=== PATIENT | male | born 1965 | race Caucasian/White ===

== ENCOUNTER 2016-10-07 13:00 | Emergency (ER) | payer OTHER ==
[~2016-10-07] VITALS: Ht 185.4 cm; Wt 99.0 kg
[2016-10-07 13:01] VITALS: Ht 185.4 cm; Wt 99.0 kg
[2016-10-07] MEDS ORDERED: KETOROLAC TROMETHAMINE 60 MG/2 ML VIAL IM STA (13:15)
[2016-10-07] MEDS ORDERED: LIDODERM (LIDOCAINE) PATCH 5% TD STA (13:15)
[2016-10-07] MEDS ORDERED: DIAZEPAM 5MG TAB PO ONE (13:15)
[2016-10-07] MEDS ORDERED: MoRPHine SULFATE 10 MG/ML CARP/VIAL IM STA (13:15)
--- NOTE | 2016-10-07 13:34 | EMERGENCY ROOM VISIT NOTE ---
History Report prepared by Madalyn: Willow Denton Under the Supervision of: Dr. Briseida Flores D.O. First contact with patient: 13:06 Chief Complaint: BACK PAIN Stated Complaint: LOW BACK PAIN WITH RT SIDE BURNING History of Present Illness The patient is a 51 year old male who presents to the Emergency Room with complaints of persistent back pain that started two days ago. The patient describes his pain as burning the in his middle and lower back and states like it feel like his back "has a blow torch on it". He also notes that his pain worsens when he works. He has been working the last 2 days. The patient states that he has shock like pain in legs and feet. He states he has two bulging disks in his spine. He has had similar episodes previously and exacerbation of his pain due to increased lifting or moving. Patient states he was recently unloading pallets from a truck. He also notes that the pain makes him nauseous. The patient states that he takes takes 500 mg Tylenol for his symptoms and has had little relief. He denies incontinence and numbness in his genitalia. He also takes Tramadol for arthritis in his shoulder. Patient states movement makes the pain worse. Source of History: patient Onset: two days ago Position: back (lower) Quality: burning Timing: other (persistent) Associated Symptoms: No numbness (in genitalia) Note: Pt has shock like pain in legs and feet. Pt denies incontinence. Review of Systems See HPI for pertinent positives & negatives. A total of 10 systems reviewed and were otherwise negative. Past Medical & Surgical Medical Problems: (1) Arthritis (2) Bulging discs Family History No pertinent family history stated. Social History Smoking Status: Never Smoker Marital Status: single Occupation Status: employed Current/Historical Medications Scheduled Lidocaine (Lidoderm Patch 5%), 1 PATCH TD DAILY Scheduled PRN Diazepam (Valium), 5 MG PO Q6H PRN for Pain Ibuprofen (Advil), 200-800 MG PO Q8 PRN for Pain Oxycodone/Acetaminophen 5MG/325MG (Percocet 5MG/325MG), 1-2 TABS PO Q6H PRN for Pain Tramadol (Ultram), 50 MG PO Q8H PRN for Pain Allergies Coded Allergies: No Known Allergies (Unverified , 10/07/16) Physical Exam Vital Signs Date Time Temp Pulse Resp B/P (MAP) Pulse Ox O2 Delivery O2 Flow Rate FiO2 10/07/16 15:55 36.5 54 18 137/91 96 10/07/16 13:01 36.5 75 18 155/104 96 Physical Exam GENERAL: alert, well appearing, well nourished, no distress, non-toxic. Patient is in mild distress. EYE EXAM: normal conjunctiva, PERRL and EOM's grossly intact OROPHARYNX: no exudate, no erythema, lips, buccal mucosa, and tongue normal and mucous membranes are moist. Poor dentition. NECK: supple, no nuchal rigidity, no adenopathy, non-tender LUNGS: Clear to auscultation. Normal chest wall mechanics HEART: no murmurs, S1 normal and S2 normal ABDOMEN: abdomen soft, non-tender, normo-active bowel sounds, no masses, no rebound or guarding. BACK: Back is symmetrical on inspection and there is no deformity, Mild tenderness across lower back SKIN: no rashes and no bruising UPPER EXTREMITIES: upper extremities are grossly normal. LOWER EXTREMITIES: No pitting edema. Mild hyperesthesia down right lateral extremity.+2/4 patellar reflexes b/l NEURO EXAM: Normal sensorium, cranial nerves II-XII grossly intact, normal speech, no gross weakness of arms, no gross weakness of legs. Gross sensation intact. Medical Decision & Procedures Medications Administered Medications (Trade) Dose Ordered Sig/Nusrat Route Start Time Stop Time Status Last Admin Dose Admin Lidocaine (Lidoderm Patch 5%) 1 patch NOW STAT TD 10/07/16 13:15 10/07/16 13:17 DC 10/07/16 13:29 1 PATCH Morphine Sulfate (MoRPHine SULFATE INJ) 8 mg NOW STAT IM 10/07/16 13:15 10/07/16 13:17 DC 10/07/16 13:30 8 MG Diazepam (Valium Tab) 5 mg NOW ONCE PO 10/07/16 13:15 10/07/16 13:17 DC 10/07/16 13:30 5 MG Ketorolac Tromethamine (Toradol Inj) 60 mg NOW STAT IM 10/07/16 13:15 10/07/16 13:17 DC 10/07/16 13:29 60 MG Oxycodone/ Acetaminophen (Percocet 5-325mg Tab) 2 tab NOW ONCE PO 8/12/17 14:30 10/07/16 14:31 DC 10/07/16 15:09 2 TAB ED Course 1310: The patient was evaluated in room B4B. A complete history and physical exam was performed. 1315: Toradol Inj 60 mg IM, Valium tab 5 mg PO, Morphine Sulfate 8 mg IM, Lidocaine 1 patch TD. 1415: I reevaluated the patient he says he is feeling moderately better. 1430: Oxycodone/Acetaminophen 2 tab PO. 1522: I rechecked on the patient, he states he is feeling better and resting more comfortably. 1532: Upon reevaluation, the patient is feeling better. I discussed the findings and the treatment plan with the patient. He verbalizes agreement and understanding. The patient was discharged home. Medical Decision Differential diagnosis: Etiologies such as musculoskeletal, disc herniation, fracture, aortic disease, metastatic disease, cord compression, discitis, infection, renal colic, gastrointestinal, acute exacerbation of chronic back pain, sciatica, cauda equina, as well as others were entertained. Patient with history of chronic low back pain and known herniated disc with an acute exacerbation and likely lumbar radiculopathy. The symptoms to suggest acute cauda equina, no risk factors for epidural abscess/hematoma. She and able to ambulate, had normal patellar reflexes, was not incontinent. Doubt acute infectious etiology including osteomyelitis or discitis. Patient with likely worsening disc herniation contributing to radicular pain. Patient states he has previously seen a specialist and surgery was recommended however he has declined this. Patient takes tramadol daily for his chronic pain, but in the last 2-3 days the tramadol was not helping. Patient improved here following additional medications, urine negative and doubt additional pathology contributing to pain. Doubt vascular etiology. Vital signs otherwise stable. Discussed with patient close follow-up with his family doctor , symptoms to watch and return for, he verbalized understanding was agreeable with plan. Medication Reconcilliation Current Medication List: was personally reviewed by me Blood Pressure Screening Patient's blood pressure: Elevated blood pressure Blood pressure disposition: Elevated BP felt to be situational Impression Primary Impression: Low back pain Additional Impression: Lumbar radiculopathy Scribe Attestation The scribe's documentation has been prepared under my direction and personally reviewed by me in its entirety. I confirm that the note above accurately reflects all work, treatment, procedures, and medical decision making performed by me. Departure Information Dispostion Home / Self-Care Prescriptions Lidocaine (Lidoderm Patch 5%) 1 Ea Tdsy 1 PATCH TD DAILY for Pain, #1 BOX Prov: Briseida Flores, DO 10/07/16 Diazepam (Valium) 5 Mg Tab 5 MG PO Q6H Y for Pain, #15 TAB Prov: Briseida Flores, DO 10/07/16 Oxycodone/Acetaminophen 5MG/325MG (PERCOCET 5MG/325MG) Tab 1-2 TABS PO Q6H Y for Pain, #20 TAB Prov: Briseida Flores, DO 10/07/16 Referrals No Doctor, Assigned (PCP) Forms HOME CARE DOCUMENTATION FORM, IMPORTANT VISIT INFORMATION Patient Instructions My [facility] Additional Instructions Please avoid any heavy lifting or strenuous activity until you're feeling better. Please take the medications as prescribed. You cannot take the muscle relaxer or stronger pain medication and drive his you may become drowsy or dizzy. You may use an additional [id number] anti-inflammatories such as Motrin/Advil/Aleve. While you're taking these please drink plenty of water and do not take them on an empty stomach. If you have any worsening pain, increasing numbness or tingling in the leg, develop weakness of the leg, numbness or tingling around your genitals or groin, become incontinent of urine or stool, develop fevers, or you have any other new concerns, please return the emergency room immediately. Problem Qualifiers Primary Impression: Low back pain Chronicity: acute Back pain laterality: bilateral Sciatica presence: with sciatica Sciatica laterality: sciatica of right side Qualified Codes: M54.41 - Lumbago with sciatica, right side
[2016-10-07] MEDS ORDERED: IBUP-1050 PO (14:18)
[2016-10-07] MEDS ORDERED: TRAM-10 PO (14:18)
[2016-10-07] MEDS ORDERED: OXYCODONE/ACETAMINOPHEN 5-325 TAB PO ONE (14:30)
[2016-10-07] MEDS ORDERED: DIAZ-165 PO (15:16)
[2016-10-07] MEDS ORDERED: NF656 TD (15:16)
[2016-10-07] MEDS ORDERED: OXYC-57 PO (15:16)
[2016-10-07 15:55] VITALS: BP 137/91; PULSE 54; TEMP 36.5; O2SAT 96
== END 2016-10-07 15:40 | disposition home or self-care (01) ==
LOC: C.EDB 13:02
DX: M54.41 Lumbago with sciatica, right side (principal); M54.16 Radiculopathy, lumbar region; M19.90 Unspecified osteoarthritis, unspecified site

== ENCOUNTER 2017-04-30 12:30 | Emergency (ER) | payer OTHER ==
[~2017-04-30] VITALS: Ht 188 cm; Wt 88.0 kg
[~2017-04-30 12:30] MED LIST: DIAZ-165 PO; IBUP-1050 PO; NF656 TD; OXYC-57 PO; TRAM-10 PO
[2017-04-30 12:34] VITALS: TEMP 36.7; Ht 188 cm; Wt 88.0 kg
--- NOTE | 2017-04-30 13:42 | EMERGENCY ROOM VISIT NOTE ---
History First contact with patient: 13:05 Chief Complaint: ARM PAIN Stated Complaint: STOMACH BURNING, R ARM NUMB( NO STRENGTH History of Present Illness The patient is a 52 year old male who presents to the Emergency Room with complaints of right arm paresthesias which began approximately 3 hours ago. The patient states he was pushing a car into the garage at work, when he began experiencing a sharp pain in his right arm radiating from the shoulder to the fingers. The patient states this sharp pain quickly left and was replaced by a burning sensation. He states following the burning sensation, he has a sensation "like my arm is asleep". He states this has remained and does not seem to be changing for the past few hours. He states he feels very weak in that arm, but denies any actual numbness as far as decreased sensation. The patient states a few days ago, a similar episode occurred, but only lasted for 2 -3 minutes, then the patient was fine. He states he took 1 dose of 600 mg ibuprofen when the incident began today, and did not notice any improvement in his symptoms. 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 He states he feels that his nails may be more red than normal, but is uncertain. He rates the discomfort 10/10. The patient also complains of epigastric abdominal pain which is not improving with Tums. The patient does have a history of peptic ulcer disease, and states he does get similar pain in the epigastric region with his diet and the use of NSAIDs. He states he has been taking more NSAIDs than normal due to the weather and his arthritis flaring up. He states today, while pushing the car, he noticed the epigastric pain worsening. He took 4-5 times, and did not feel improvement in his symptoms. He describes the pain as a burning sensation and states he felt that he needed to double over to relieve the pain. He states it does feel consistent with his gastritis. He had only Mountain Dew today, and has not eaten or drank anything different. He describes the pain as a burning sensation and rates it 7/10. The patient reports associated lightheadedness with the other symptoms. He denies any chest pain, dizziness, shortness of breath, cough, hemoptysis, coffee -ground emesis, visual disturbances, nausea, vomiting, diarrhea, constipation, recent illness or fever, recent vaccinations, headache, new or different back pain, or any leg or lower extremity symptoms. He denies any urinary symptoms. He denies any history of hyperlipidemia. He did recently have a carotid duplex scan which did not show any stenosis or blockages. Review of Systems A complete 10 point review of systems was reviewed with the patient with pertinent positives and negatives as per history of present illness. All else were negative. Past Medical/Surgical History Medical Problems: (1) Arthritis (2) Bulging discs Social History Smoking Status: Never Smoker Marital Status: single Occupation Status: employed Current/Historical Medications Scheduled Ibuprofen (Motrin), 600 MG PO TID Scheduled PRN Orphenadrine Citrate (Norflex), 100 MG PO TID PRN for MUSCLE SPASMS & BACK PAIN Sildenafil Citrate (Pulmonary (Sildenafil), 20-60 MG PO UD PRN for PRN Tramadol (Ultram), 50 MG PO Q8H PRN for Pain Allergies None Physical Exam Vital Signs Date Time Temp Pulse Resp B/P (MAP) Pulse Ox O2 Delivery O2 Flow Rate FiO2 04/30/17 16:29 80 20 156/100 99 04/30/17 15:50 76 18 165/95 93 Room Air 04/30/17 14:45 78 04/30/17 13:45 98 Room Air 04/30/17 12:34 36.7 98 18 137/90 96 Physical Exam VITALS: Vitals are noted on the nurse's note and reviewed by myself. Vital signs stable. GENERAL: This is a 52-year-old white male, in no acute distress, nondiaphoretic , well-developed well-nourished. SKIN: The skin was without rashes, erythema, edema, or bruising. There is no tenting of the skin. Capillary reflex less than 2 seconds. HEAD: Normocephalic atraumatic. EARS: External auditory canals clear, tympanic membranes pearly dyson without erythema or effusion bilaterally. EYES: Pupils equal round and reactive to light and accommodation. Conjunctivae without injection, sclerae without icterus. Extraocular movements intact. NOSE: Patent, turbinates without inflammation or discharge. No sinus tenderness. MOUTH: Mucous membranes moist. Tonsils are not enlarged. Pharynx without erythema or exudate. Uvula midline. Airway patent. Tongue does not deviate. NECK: Supple without nuchal rigidity. No lymphadenopathy. No thyromegaly. Cervical spine is nontender. No JVD. HEART: Regular rate and rhythm without murmurs gallops or rubs. LUNGS: Clear to auscultation bilaterally without wheezes, rales or rhonchi. No dullness to percussion. No retractions or accessory muscle use. ABDOMEN: Positive bowel sounds x 4. Normal tympanic percussion. Epigastric tenderness noted on palpation. The abdomen was otherwise soft, nontender, without masses or organomegaly. Wilson sign negative. No guarding or rebound tenderness. No CVA tenderness. MUSCULOSKELETAL: Tenderness in the right shoulder located just posterior to the clavicle, in what is consistent with the thoracic outlet. Adson's maneuver negative. No muscle atrophy, erythema, or edema noted. Full range of motion without joint tenderness in all extremities. No tenderness to palpation. Normal gait. Strength 3/5 throughout in the right upper extremity compared with 5/5 strength in the left upper extremity. NEURO: Patient was alert and oriented to person place and time. Normal sensation to light and sharp touch. Deep tendon reflexes 2+ throughout. No focal neurological deficits. Medical Decision & Procedures ER Provider Diagnostic Interpretation: CERVICAL SPINE 2 OR 3 VIEWS CLINICAL HISTORY: 52 years-old Male presenting with neck pain with radiculopathy. TECHNIQUE: Lateral, frontal, open-mouth odontoid, and submental views of the cervical spine were obtained. COMPARISON: None. FINDINGS: Straightening of normal cervical lordosis likely positional. Vertebral bodies maintain normal height and alignment. Mild intervertebral disc height loss evident at C5-6 and C6-7, where there are disc osteophyte complexes. No significant posterior bony spurring. No radiographic evidence of fracture or subluxation. Normal atlantodental interval. No prevertebral soft tissue swelling. Lateral masses of C1 articulate normally with C2. Anterior arch of C1 intact. Partially visualized cortical compression plate and screw fixation of a clavicle. IMPRESSION: Degenerative changes of the cervical spine at C5-6 and C6-7. No radiographic evidence of acute osseous injury. Electronically signed by: Brian Ley M.D. 04/30/2017 2:57 PM Dictated Date/Time: 04/30/2017 2:56 PM TWO VIEW CHEST CLINICAL HISTORY: Epigastric abdominal pain. FINDINGS: PA and lateral chest radiographs are obtained. No prior studies are available for comparison at the time of dictation. The cardiomediastinal silhouette is unremarkable. Emphysematous change is suspected. Nonspecific interstitial thickening is noted. No airspace consolidation or pleural effusion is identified. There is no pneumothorax. Postoperative change is identified in the left clavicle. IMPRESSION: No acute cardiopulmonary abnormality. Electronically signed by: Davis Downing M.D. 04/30/2017 2:53 PM Dictated Date/Time: 04/30/2017 2:52 PM RIGHT SHOULDER 3 VIEWS CLINICAL HISTORY: Right shoulder pain. Paresthesias. FINDINGS: 3 views of the right shoulder are obtained. No prior studies are available for comparison at the time of dictation. The skeletal structures are well mineralized. No fracture or dislocation is seen. Minimal productive degenerative change is identified at the acromioclavicular joint. The glenohumeral articulation is preserved. The overlying soft tissues are within normal limits. The visualized right upper lobe lung parenchyma appears clear. IMPRESSION: No acute bony abnormality is seen in the right shoulder. Electronically signed by: Davis Downing M.D. 04/30/2017 2:55 PM Dictated Date/Time: 04/30/2017 2:54 PM Laboratory Results 04/30/17 13:45 Red Blood Count 4.62, Mean Corpuscular Volume 91.3, Mean Corpuscular Hemoglobin 32.7, Mean Corpuscular Hemoglobin Concent 35.8, Mean Platelet Volume 9.2, Neutrophils (%) (Auto) 41.7, Lymphocytes (%) (Auto) 41.6, Monocytes (%) (Auto) 12.7, Eosinophils (%) (Auto) 3.4, Basophils (%) (Auto) 0.6, Neutrophils # (Auto ) 1.47, Lymphocytes # (Auto) 1.47, Monocytes # (Auto) 0.45, Eosinophils # (Auto ) 0.12, Basophils # (Auto) 0.02 04/30/17 13:45 Test 04/30/17 13:45 White Blood Count 3.53 K/uL (4.8-10.8) Red Blood Count 4.62 M/uL (4.7-6.1) Hemoglobin 15.1 g/dL (14.0-18.0) Hematocrit 42.2 % (42-52) Mean Corpuscular Volume 91.3 fL (80-100) Mean Corpuscular Hemoglobin 32.7 pg (25-34) Mean Corpuscular Hemoglobin Concent 35.8 g/dl (32-36) Platelet Count 226 K/uL (130-400) Mean Platelet Volume 9.2 fL (7.4-10.4) Neutrophils (%) (Auto) 41.7 % Lymphocytes (%) (Auto) 41.6 % Monocytes (%) (Auto) 12.7 % Eosinophils (%) (Auto) 3.4 % Basophils (%) (Auto) 0.6 % Neutrophils # (Auto) 1.47 K/uL (1.4-6.5) Lymphocytes # (Auto) 1.47 K/uL (1.2-3.4) Monocytes # (Auto) 0.45 K/uL (0.11-0.59) Eosinophils # (Auto) 0.12 K/uL (0-0.5) Basophils # (Auto) 0.02 K/uL (0-0.2) RDW Standard Deviation 40.6 fL (36.4-46.3) RDW Coefficient of Variation 12.2 % (11.5-14.5) Immature Granulocyte % (Auto) 0.0 % Immature Granulocyte # (Auto) 0.00 K/uL (0.00-0.02) Erythrocyte Sedimentation Rate 23 mm/hr (0-14) Prothrombin Time 9.9 SECONDS (9.0-12.0) Prothromb Time International Ratio 0.9 (0.9-1.1) Activated Partial Thromboplast Time 23.9 SECONDS (21.0-31.0) Partial Thromboplastin Ratio 0.9 Anion Gap 9.0 mmol/L (3-11) Est Creatinine Clear Calc Drug Dose 93.9 ml/min Estimated GFR () 92.0 Estimated GFR (Non- 79.4 BUN/Creatinine Ratio 7.4 (10-20) Calcium Level 8.7 mg/dl (8.5-10.1) Magnesium Level 2.5 mg/dl (1.8-2.4) Total Bilirubin 0.3 mg/dl (0.2-1) Aspartate Amino Transf (AST/SGOT) 26 U/L (15-37) Alanine Aminotransferase (ALT/SGPT) 29 U/L (12-78) Alkaline Phosphatase 83 U/L (45-117) Troponin I < 0.015 ng/ml (0-0.045) Total Protein 7.8 gm/dl (6.4-8.2) Albumin 3.8 gm/dl (3.4-5.0) Globulin 4.0 gm/dl (2.5-4.0) Albumin/Globulin Ratio 1.0 (0.9-2) Thyroid Stimulating Hormone (TSH) 2.970 uIu/ml (0.300-4.500) Lyme Disease IgG Antibody NEG (NEG) Lyme Disease IgM Antibody NEG (NEG) Medications Administered Medications (Trade) Dose Ordered Sig/Nusrat Route Start Time Stop Time Status Last Admin Dose Admin Dexamethasone Sodium Phosphate (Dexamethasone Inj Pf) 10 mg NOW STAT IV 04/30/17 15:38 04/30/17 15:40 DC 04/30/17 15:56 10 MG Al Hydroxide/Mg Hydroxide (Maalox Susp) 30 ml STK-MED ONCE .ROUTE 04/30/17 15:49 04/30/17 15:50 DC 04/30/17 15:57 30 ML Lidocaine HCl (Viscous Lidocaine 2% Soln) 20 ml STK-MED ONCE .ROUTE 04/30/17 15:49 04/30/17 15:50 DC 04/30/17 15:57 20 ML ECG Per My Interpretation Indication: abdominal pain Rate (beats per minute): 73 Rhythm: sinus with SA Findings: no acute ischemic change Comparison ECG Date: no prior available ED Course The patient was seen and evaluated as above. IV access obtained, labs drawn. EKG performed and reviewed by myself as above. Imaging performed and reviewed by myself and radiologist as above. I discussed the findings of labs and imaging with the patient and his at bedside. I discussed the case with my attending. The patient was given Decadron and a GI cocktail for his symptoms and did note mild improvement. Discharge instructions reviewed, and the patient was discharged home in good condition. Medical Decision This is this is a 52-year-old male patient who presents to the emergency department today complaining of left arm weakness and paresthesias as well as epigastric discomfort. The patient does have a history of gastritis, and states his discomfort is consistent with flareups of the gastritis he has had in the past. He has been taking more ibuprofen than normal due to arthritis pain, and associates the epigastric pain with the medications. He did try taking Tums without improvement. The patient's symptoms did improve with a GI cocktail. He was encouraged to always make sure he is taking ibuprofen or other NSAIDs on a full stomach, as he normally takes the medication on an empty stomach. He was encouraged to follow-up outpatient with his primary care provider and may be consider a short course of proton pump inhibitors to help with acid production. His shoulder and arm symptoms are consistent with a cervical radiculopathy versus thoracic outlet syndrome. His x-ray did show some degenerative changes at C5-6 and C6-7. He was given Decadron here in the emergency department with some mild improvement in his symptoms. The patient's lab work was overall unrevealing, and did not show any obvious signs of infection. There is no significant anemia or leukocytosis. His electrolytes, liver function, and kidney function were overall normal. His troponin test was negative. Lyme disease testing was negative, but sed rate was slightly elevated. The patient was encouraged to follow-up outpatient with orthopedics for ongoing management of his symptoms. I discussed with him proper management including anti-inflammatory medications, but I am hesitant to provide him with more steroids or NSAIDs with the gastritis. He was encouraged to take ibuprofen if his abdominal symptoms improved. The patient was agreeable to the assessment and plan. All questions were answered to the patient and his 's satisfaction. Etiologies such as gastritis, appendicitis, diverticulitis, obstruction, inflammatory bowel disease, renal colic, PUD, biliary pathology, pancreatitis, mesenteric ischemia, aortic pathology, cardiac etiology, infections, genitourinary, UTI, perforated viscus, sprain or strain, rotator cuff tear, thoracic outlet syndrome, cervical radiculopathy,fracture, malignancy, as well as others were entertained Medication Reconcilliation Current Medication List: was personally reviewed by me Blood Pressure Screening Patient's blood pressure: Elevated blood pressure Blood pressure disposition: Elevated BP felt to be situational Impression Primary Impression: Right cervical radiculopathy Additional Impression: Gastritis Departure Information Dispostion Home / Self-Care Condition GOOD Referrals No Doctor, Assigned (PCP) Tay Rincon, DO Patient Instructions ED Cervical Radiculopathy, ED PUD Vs Gastritis, My [facility] Additional Instructions You were seen in the emergency department today for left arm weakness and paresthesias, and epigastric pain/gastritis. As discussed, labs and imaging have ruled out any acute, emergent causes for your symptoms. You were given Decadron IV here in the emergency department for the inflammation in the shoulder which I suspect is causing impingement of the nerve, causing the weakness and paresthesias of the right upper extremity. For the gastritis/epigastric pain, I do recommend a two-week trial of OTC Prilosec 20 mg. Ibuprofen(Motrin, Advil) may be used for fever or pain. Use 600mg every six hours as needed. Take with food. Avoid using more than 2400mg in a 24 hour period. Do not use 2400mg per day for more than three consecutive days without physician direction. Prolonged inappropriate use can lead to stomach upset or ulcers. Please always take this medication with food to help decrease the risk of gastritis and epigastric irritation. (AND/OR) Acetaminophen(Tylenol) may be used for fever or pain. Use 1000mg every six hours as needed. Avoid using more than 3000mg in a 24 hour period. Use the narcotics and muscle relaxers you have at home to help with flareups of pain and spasms. Please follow-up with orthopedics regarding the right upper extremity symptoms. Please follow-up with your primary care provider for further evaluation of the gastritis. Return to the emergency department for any worsening symptoms or other concerns. Work Instructions Return To Work: 3 days Problem Qualifiers Additional Impression: Gastritis Gastritis type: other gastritis Chronicity: acute Gastritis bleeding: without bleeding Qualified Codes: K29.00 - Acute gastritis without bleeding
[2017-04-30 13:45] VITALS: O2SAT 98
[2017-04-30] MEDS ORDERED: SILD1TAB39 PO (14:03)
[2017-04-30] MEDS ORDERED: ORPH100T PO (14:03)
[2017-04-30] MEDS ORDERED: IBUP600T44 PO (14:03)
[2017-04-30 14:17] LABS: INR 0.9 (0.9-1.1); PTT PATIENT 23.9 SECONDS (21.0-31.0)
[2017-04-30 14:18] LABS: ALBUMIN 3.8 gm/dl (3.4-5.0); ALT/SGPT 29 U/L (12-78); BLOOD UREA NITROGEN 8 mg/dl (7-18); CALCIUM 8.7 mg/dl (8.5-10.1); CARBON DIOXIDE 24 mmol/L (21-32); CREATININE 1.07 mg/dl (0.60-1.40); GLUCOSE 85 mg/dl (70-99); POTASSIUM 3.9 mmol/L (3.5-5.1); SODIUM 141 mmol/L (136-145)
[2017-04-30 14:28] LABS: ALKALINE PHOSPHATASE 83 U/L (45-117); AST/SGOT 26 U/L (15-37); BASO % 0.6 %; BASO ABS # 0.02 K/uL (0-0.2); EOS % 3.4 %; EOS ABS # 0.12 K/uL (0-0.5); HEMATOCRIT 42.2 % (42-52); HEMOGLOBIN 15.1 g/dL (14.0-18.0); LYMPH % 41.6 %; LYMPH ABS # 1.47 K/uL (1.2-3.4); MEAN CELL VOLUME 91.3 fL (80-100); MEAN CORPUSCULAR HEMOGLOBIN 32.7 pg (25-34); MEAN CORPUSCULAR HGB CONC 35.8 g/dl (32-36); MEAN PLATELET VOLUME 9.2 fL (7.4-10.4); MONO % 12.7 %; MONO ABS # 0.45 K/uL (0.11-0.59); NEUT % 41.7 %; NEUT ABS # 1.47 K/uL (1.4-6.5); PLATELET COUNT 226 K/uL (130-400); RED CELL DISTRIBUTION WIDTH CV 12.2 % (11.5-14.5); RED CELL DISTRIBUTION WIDTH SD 40.6 fL (36.4-46.3); TOTAL PROTEIN 7.8 gm/dl (6.4-8.2); WHITE BLOOD COUNT 3.53 K/uL (4.8-10.8)
--- NOTE | 2017-04-30 14:55 | DIAGNOSTIC IMAGING REPORT ---
TWO VIEW CHEST CLINICAL HISTORY: Epigastric abdominal pain. FINDINGS: PA and lateral chest radiographs are obtained. No prior studies are available for comparison at the time of dictation. The cardiomediastinal silhouette is unremarkable. Emphysematous change is suspected. Nonspecific interstitial thickening is noted. No airspace consolidation or pleural effusion is identified. There is no pneumothorax. Postoperative change is identified in the left clavicle. IMPRESSION: No acute cardiopulmonary abnormality. Electronically signed by: Davis Downing M.D. 04/30/2017 2:53 PM Dictated Date/Time: 04/30/2017 2:52 PM
--- NOTE | 2017-04-30 14:56 | DIAGNOSTIC IMAGING REPORT ---
RIGHT SHOULDER 3 VIEWS CLINICAL HISTORY: Right shoulder pain. Paresthesias. FINDINGS: 3 views of the right shoulder are obtained. No prior studies are available for comparison at the time of dictation. The skeletal structures are well mineralized. No fracture or dislocation is seen. Minimal productive degenerative change is identified at the acromioclavicular joint. The glenohumeral articulation is preserved. The overlying soft tissues are within normal limits. The visualized right upper lobe lung parenchyma appears clear. IMPRESSION: No acute bony abnormality is seen in the right shoulder. Electronically signed by: Davis Downing M.D. 04/30/2017 2:55 PM Dictated Date/Time: 04/30/2017 2:54 PM
--- NOTE | 2017-04-30 14:58 | DIAGNOSTIC IMAGING REPORT ---
CERVICAL SPINE 2 OR 3 VIEWS CLINICAL HISTORY: 52 years-old Male presenting with neck pain with radiculopathy. TECHNIQUE: Lateral, frontal, open-mouth odontoid, and submental views of the cervical spine were obtained. COMPARISON: None. FINDINGS: Straightening of normal cervical lordosis likely positional. Vertebral bodies maintain normal height and alignment. Mild intervertebral disc height loss evident at C5-6 and C6-7, where there are disc osteophyte complexes. No significant posterior bony spurring. No radiographic evidence of fracture or subluxation. Normal atlantodental interval. No prevertebral soft tissue swelling. Lateral masses of C1 articulate normally with C2. Anterior arch of C1 intact. Partially visualized cortical compression plate and screw fixation of a clavicle. IMPRESSION: Degenerative changes of the cervical spine at C5-6 and C6-7. No radiographic evidence of acute osseous injury. Electronically signed by: Brian Ley M.D. 04/30/2017 2:57 PM Dictated Date/Time: 04/30/2017 2:56 PM
[2017-04-30] MEDS ORDERED: DEXAMETHASONE **PF** INJ 10 MG/ML VIAL IV STA (15:38)
[2017-04-30] MEDS ORDERED: GI COCKTAIL PO STA (15:38)
[2017-04-30] MEDS ORDERED: LIDOCAINE HCL 2% VISC SOLN 20 ML UDC ONE (15:49)
[2017-04-30] MEDS ORDERED: ALUMINUM/MAGNESIUM SUSP 30 ML UDC ONE (15:49)
[2017-04-30 16:29] VITALS: BP 156/100; PULSE 80; O2SAT 99
== END 2017-04-30 16:30 | disposition home or self-care (01) ==
LOC: C.EDB 12:31
DX: M54.12 Radiculopathy, cervical region (principal); M79.601 Pain in right arm; K29.70 Gastritis, unspecified, without bleeding

== ENCOUNTER 2017-10-08 10:52 | Emergency (ER) | payer OTHER ==
[~2017-10-08] VITALS: Ht 185.4 cm; Wt 95.2 kg
[~2017-10-08 10:52] MED LIST changes: -DIAZ-165 PO; +HYDR-5688 PO; -IBUP-1050 PO; +IBUP600T44 PO; -NF656 TD; +ORPH100T PO; -OXYC-57 PO; +SILD1TAB39 PO
[2017-10-08 11:00] VITALS: TEMP 36.5; Ht 185.4 cm; Wt 95.2 kg
[2017-10-08] MEDS ORDERED: LIDODERM (LIDOCAINE) PATCH 5% TD STA (11:20)
[2017-10-08] MEDS ORDERED: MoRPHine SULFATE 10 MG/ML CARP/VIAL IM STA (11:20)
--- NOTE | 2017-10-08 12:02 | DIAGNOSTIC IMAGING REPORT ---
L-SPINE MIN 4 VIEWS ROUTINE HISTORY: Pain Low back pain, hx l4-l5 ailments COMPARISON: None. FINDINGS: There is no fracture. No subluxation. Degenerative disc change considered moderate to significant L4-L5. Mild degenerative disc change L5-S1. IMPRESSION: Degenerative disc change L4-S1. Study is otherwise unremarkable. The above report was generated using voice recognition software. It may contain grammatical, syntax or spelling errors. Electronically signed by: Ronny Riggs M.D. 10/08/2017 12:01 PM Dictated Date/Time: 10/08/2017 12:01 PM
--- NOTE | 2017-10-08 12:19 | EMERGENCY ROOM VISIT NOTE ---
ED Visit Note First contact with patient: 11:10 CHIEF COMPLAINT: "Bad back pain". HISTORY OF PRESENT ILLNESS: This 52-year-old male patient presents to the emergency department via private complaining of pain in the low back which began last evening when he was at [place], when he felt a pop in his back while moving. He notes that this is in his low back on the left side. He has a history of back problems at L4-L5. He states that he has not taken his tramadol or muscle relaxers over the past few days. These are prescribed for him. He states that the pain is in the left low back and he can feel the muscle spasm. It travels all the way up into his left neck. He notes that he has had pain like this before. The pain is a 10/10. He notes that he would like to catch this early as he has had this because problems in the past, and it gets worse and worse. No chest pain or shortness of breath per the patient denies any loss of control of their bowel or bladder functions. There has been no leg numbness or weakness, and no change in sensation. No nausea or vomiting or abdominal pain. No chest pain or shortness of breath. No dysuria or increased urinary frequency. REVIEW OF SYSTEMS: A review of systems was performed with positives and pertinent negatives listed in the history of present illness. All other systems were reviewed and are negative. ALLERGIES: As noted below MEDICATIONS: As noted below PMH: L4 and L5 ailments SOCIAL HISTORY: Patient is employed and lives locally. PHYSICAL EXAM: VITALS: Vitals are noted on the nurse's note and reviewed by myself. Vital signs stable. GENERAL: 52-year-old male, in no acute distress, nondiaphoretic, well-developed well-nourished. SKIN: The skin was without rashes, erythema, edema, or bruising. NECK: Supple without nuchal rigidity. No cervical spine tenderness. No paraspinous muscle tenderness. HEART: Regular rate and rhythm without murmurs gallops or rubs. LUNGS: Clear to auscultation bilaterally without wheezes, rales or rhonchi. ABDOMEN: Positive bowel sounds x 4. Normal tympanic percussion. Soft, nontender, without masses or organomegaly. Wilson sign negative. MUSCULOSKELETAL: No muscle atrophy, erythema, or edema noted of the back. There is no tenderness over the lumbar spinous processes. There is noted tenderness over the paraspinous muscles of the lumbar spine left greater than right. There is also tenderness over the thoracic spine left-sided paraspinous muscles. There are noted muscle spasms present. The patient is slow to move around with maximum tenderness with left inferior low back musculature. NEURO: Patient was alert and oriented to person place and time. Normal sensation and movement in the lower extremities. Strength 5/5 and equal in the bilateral lower extremities. EMERGENCY DEPARTMENT COURSE: Patient was seen and evaluated as above in room D5. Review was performed of nursing notes and vital signs. After obtaining a thorough history and physical examination the above work up was performed. He presents today with low back pain. He is nontoxic on examination. No fevers, chills, abdominal pain. No evidence of cauda equina syndrome. No chest pain or shortness of breath. He notes that he experiences similar pain about once a year. Reviewed his previous chart. While here he was given lidocaine patch as well as morphine. He was reevaluated and had minimal relief. He was then given IM Dilaudid. He is reevaluated and feeling better. I believe he is stable for outpatient management. He was observed here for some time to ensure that there was no decline in his respiratory status or oxygenation given the pain medication. He was also given Valium with some relief as well. He had no decline in his ability to talk, or decline in vital signs. He will be given a home pack of oxycodone and is to then resume the tramadol. He is to return with worsening. He is to follow-up with the family doctor. I suspect musculoskeletal strain. No evidence of cauda equina syndrome. The patient was educated upon management, educated upon todays findings/results, educated upon symptoms in which to return, had questions answered prior to discharge, and was discharged home in good condition. In the evaluation and treatment of this patient the following differential diagnoses were entertained: Fracture, dislocation, cauda equina syndrome, sprain , strain, among others. Problem List Medical Problems: (1) Arthritis Status: Chronic (2) Bulging discs Status: Chronic Current/Historical Medications Scheduled PRN Ibuprofen (Motrin), 600 MG PO TID PRN for Pain Orphenadrine Citrate (Norflex), 100 MG PO HS PRN for MUSCLE SPASMS & BACK PAIN Sildenafil Citrate (Pulmonary (Sildenafil), 20-60 MG PO UD PRN for PRN Tramadol (Ultram), 50 MG PO Q8H PRN for Pain Allergies Coded Allergies: Acetaminophen (Unverified Allergy, Unknown, NAUSEA, 10/08/17) Hydrocodone (Unverified Allergy, Unknown, NAUSEA, 10/08/17) Vital Signs Date Time Temp Pulse Resp B/P (MAP) Pulse Ox O2 Delivery O2 Flow Rate FiO2 10/08/17 14:34 55 18 138/89 98 10/08/17 13:38 96 Room Air 10/08/17 13:38 51 16 132/90 96 Room Air 10/08/17 11:00 36.5 66 18 151/95 95 Room Air Medications Administered Medications (Trade) Dose Ordered Sig/Nusrat Route Start Time Stop Time Status Last Admin Dose Admin Morphine Sulfate (MoRPHine SULFATE INJ) 10 mg NOW STAT IM 10/08/17 11:20 10/08/17 11:21 DC 10/08/17 11:28 10 MG Lidocaine (Lidoderm Patch 5%) 1 patch NOW STAT TD 10/08/17 11:20 10/08/17 11:21 DC 10/08/17 11:28 1 PATCH Diazepam (Valium Tab) 10 mg NOW STAT PO 10/08/17 12:20 10/08/17 12:22 DC 10/08/17 12:35 10 MG Hydromorphone HCl (Dilaudid Inj) 1 mg NOW STAT IM 10/08/17 13:16 10/08/17 13:17 DC 10/08/17 13:35 1 MG Oxycodone HCl (Roxicodone Immediate Rel 5MG Home Pack) 1 homepack UD STAT PO 10/08/17 14:05 10/08/17 14:06 DC 10/08/17 14:19 1 HOMEPACK Departure Information Dispostion Home / Self-Care Condition GOOD Referrals No Doctor, Assigned (PCP) Patient Instructions My [facility] Additional Instructions You have been treated in the Emergency Department for Back Pain. You have received pain medicine in the emergency department which impairs your ability to operate a vehicle. It is illegal for you to drive after receiving these medicines. You have been prescribed a few tablets of oxycodone to be used for pain control. Do not take this with the tramadol. This is a narcotic medication. You cannot drive or consume alcohol while on this medicine. This medicine should only be used for pain that cannot be controlled with [id number] pain medicines. For pain control, you can use the following [id number] medicines (if >12 yo): - Regular strength (325mg/tab) Tylenol (acetaminophen) 2 tabs every 4-6 hours as needed. Do not exceed 12 tablets in a 24 hour period. Avoid taking more than 3 grams (3000 mg) of Tylenol per day. This includes any other sources of acetaminophen you may take on a regular basis. - Regular strength (200 mg/tab) Advil (ibuprofen) 1-2 tabs every 4-6 hours as needed. Do not exceed a dose of 3200 mg per day. If this is an acute injury, ice can be applied to the area of pain for the first 3 days to help decrease pain and inflammation. After the first 3 days, a heating pad can be used over the area for continued soothing relief. You should schedule a follow-up appointment in 2-3 days with your Primary Care Provider for further evaluation and treatment of your back pain. Return to the Emergency Department if your current symptoms worsen despite treatment course outlined above, or if you develop any of the following symptoms : intractable pain despite aforementioned treatment course, loss of control of your bowel or bladder, numbness or tingling in your groin, or development of a fever.
[2017-10-08] MEDS ORDERED: DIAZEPAM 5MG TAB PO STA (12:20)
[2017-10-08] MEDS ORDERED: HYDROmorphone INJ 1 MG/ML SYR IM STA (13:16)
[2017-10-08 13:38] VITALS: O2SAT 96
[2017-10-08] MEDS ORDERED: OXYCODONE IR HOME PACK PO STA (14:05)
[2017-10-08 14:34] VITALS: BP 138/89; PULSE 55; O2SAT 98
== END 2017-10-08 14:10 | disposition home or self-care (01) ==
LOC: C.EDB 10:53 → C.EDD 14:10
DX: M54.5 Low back pain (principal); M19.90 Unspecified osteoarthritis, unspecified site; M51.26 Other intervertebral disc displacement, lumbar region; Z79.899 Other long term (current) drug therapy; Z88.6 Allergy status to analgesic agent